=== PATIENT | female | born 1950 | race Caucasian/White ===

== ENCOUNTER → 2017-10-20 | Outpatient (CLI) | payer MEDICARE | LOC: M WHC 09:13 | DX: R92.2 Inconclusive mammogram (principal); Z01.419 Encounter for gynecological examination (general) (routine) without abnormal findings (principal); Z12.31 Encounter for screening mammogram for malignant neoplasm of breast; R92.0 Mammographic microcalcification found on diagnostic imaging of breast; R92.8 Other abnormal and inconclusive findings on diagnostic imaging of breast; E89.40 Asymptomatic postprocedural ovarian failure; Z78.0 Asymptomatic menopausal state; Z84.89 Family history of other specified conditions; Z12.12 Encounter for screening for malignant neoplasm of rectum | CPT/HCPCS: 77067 ==

== ENCOUNTER → 2017-10-22 | Outpatient (CLI) | payer MEDICARE | LOC: M RAD 11:45 | DX: R92.0 Mammographic microcalcification found on diagnostic imaging of breast (principal) | CPT/HCPCS: 77065 ==

== ENCOUNTER → 2017-11-24 | Outpatient (CLI) | payer MEDICARE ==
[~2017-11-24] MED LIST: LIDOCAINE 1% MDV 20ML VIAL As Ordered
== END ==
LOC: M RADPRO 10:14
DX: R92.0 Mammographic microcalcification found on diagnostic imaging of breast (principal); N60.12 Diffuse cystic mastopathy of left breast; N60.92 Unspecified benign mammary dysplasia of left breast
CPT/HCPCS: 19081

== ENCOUNTER → 2018-11-14 | Outpatient (CLI) | payer MEDICARE ==
--- NOTE | 2018-11-14 12:37 | REPMRS ---
Patient History The patient states she has not had a clinical breast exam in over a year. Family history of breast cancer under age 50 in paternal aunt, breast cancer in paternal grandmother. Benign radio exam breast specimen of the left breast, November 24, 2017. Benign stereotatic loc for ea lesion of the left breast, November 24, 2017. Took unspecified hormones for 1 year. Digital Woman Screen Mammo: November 14, 2018 - Exam #: [id number] Bilateral CC and MLO view(s) were taken. Technologist: Marcela Cameron, Technologist Prior study comparison: October 20, 2017, digital woman screen mammo performed at [facility] [employer] [facility]. March 07, 2015, digital woman screen mammo performed at [facility] [employer] [facility]. February 27, 2014, digital woman screen mammo performed at [facility] [employer] [facility]. FINDINGS: The breast tissue is heterogeneously dense. This may lower the sensitivity of mammography. There is a needle biopsy marker clip projecting the upper outer quadrant on the left. There is a moderate amount of heterogeneously dense fibroglandular tissue which is fairly symmetric. There is no interval development of dominant mass, architectural distortion, or clustered microcalcification typical of malignancy. There has been no change in the appearance of the mammogram from the prior studies. 3-D tomosynthesis shows no additional findings. Assessment: BI-RADS/ACR category 2 mammogram. Benign Findings. Recommendation Routine screening mammogram of both breasts in 1 year (for women over age 40). This patient's Lifetime Breast Cancer RIsk is estimated at 6.7 %. This mammogram was interpreted with the aid of an FDA-approved computer-aided dectection system. Electronically Signed By: Jonathan Chopra MD 11/14/18 [id number]
== END ==
LOC: M WHC 10:16
PROVIDERS: ATTEND Nurse Practitioner Women's Health
DX: Z12.31 Encounter for screening mammogram for malignant neoplasm of breast (principal); Z92.29 Personal history of other drug therapy; Z86.018 Personal history of other benign neoplasm
CPT/HCPCS: 77063; 77067; G0463

== ENCOUNTER → 2018-12-07 | Outpatient (REF) | payer MEDICARE | LOC: M SFHCWAGY 15:36 | PROVIDERS: ATTEND Nurse Practitioner Women's Health | DX: R39.15 Urgency of urination (principal); R30.0 Dysuria | CPT/HCPCS: 81002; 87088; 87186; G0463 ==

== ENCOUNTER → 2019-03-14 | Outpatient (REF) | payer MEDICARE | LOC: M SFHCWAGY 13:04 | PROVIDERS: ATTEND Nurse Practitioner Women's Health | DX: R39.15 Urgency of urination (principal); R10.32 Left lower quadrant pain; R10.31 Right lower quadrant pain ==

== ENCOUNTER → 2020-03-04 | Outpatient (CLI) | payer MEDICARE ==
[~2020-03-04] MED LIST changes: +CALC1TAB62 PO; -LIDOCAINE 1% MDV 20ML VIAL As Ordered; +MAGN100T PO; +NO ITAB PO; +RA K500C PO; +SUPECAP PO; +VITAD1000T PO
== END ==
LOC: M LABSMTC 09:24
PROVIDERS: ATTEND Anesthesiology
DX: Z01.818 Encounter for other preprocedural examination (principal); Z11.59 Encounter for screening for other viral diseases

== ENCOUNTER 2020-03-07 12:08 | Day surgery (SDC) | payer MEDICARE ==
[~2020-03-07] VITALS: Ht 167.6 cm; Wt 68.9 kg
[~2020-03-07 12:08] MED LIST changes: +BSS IRR 500ML/OMIDRIA 4ML IRR BAG (OR ONLY) (J1097 PER ML) As Ordered ONE; +CEFUROXIME 1MG/0.1ML INTRACAMERAL INJ As Ordered ONE; +DUOVISC (0.50ML VISCOAT/0.55ML PROVISC) OPHTH KIT As Ordered ONE; +MIDAZOLAM INJ 2MG/2ML VIAL (J2250 PER 1MG) As Ordered ONE; +OFLOXACIN 0.3 % (OCUFLOX) OPTH SOL 5ML OD ONE; +PHENYLEPHRINE 2.5% OPHTH SOL 2ML OD ONE; +POVIDONE-IODINE 5% OPHTH PREP SOL 30ML As Ordered ONE; +PROPARACAINE 0.5% OPHTH SOL 15ML OD ONE; +TROPICAMIDE 1% OPHTH SOLN 2ML OD ONE; +fentaNYL 100 MCG/2 ML INJECTION (J3010) As Ordered ONE
[2020-03-07 14:55] VITALS: BP 163/88
--- NOTE | 2020-03-14 23:49 | RO ---
DATE OF PROCEDURE: 03/07/2020 PREOPERATIVE DIAGNOSIS: 1. Visually significant nuclear sclerotic cataract right eye. POSTOPERATIVE DIAGNOSIS: 1. Visually significant nuclear sclerotic cataract right eye. PROCEDURE: 1. Cataract extraction with use of phacoemulsification and placement of intraocular lens, AU00T0, 19.0 D, right eye. SURGEON: Migue Real DO HOT MILL SHEARER: None. ANESTHESIA: Local with monitored anesthesia care (MAC), with Omidria (4 mL/500 mL) mixed into irrigation solution. COMPLICATIONS: None. POSTOPERATIVE CONDITION: Stable. INDICATIONS FOR SURGERY: 1. Blurred vision affecting patients activities of daily living. DESCRIPTION OF PROCEDURE: The patient was seen in the preoperative area and properly identified. The correct operative eye was identified and marked. The patient received topical anesthetic, antibiotics, and topical dilating drops. The patient was then transferred to the operating room. The correct side was re-identified, and a time-out was performed. The eye was prepped and draped in a sterile fashion. The eyelids were isolated with Tegaderm tape, and the lids were held open with an adjustable speculum. A 1.0 mm paracentesis incision was made. Intraocular preservative-free Shugarcaine was then injected into the anterior chamber. Viscoelastic was then injected into the anterior chamber through the paracentesis. Using a 2.4 mm sharp-tipped keratome, the anterior chamber was entered via a temporal clear cornea incision. A continuous curvilinear capsulorrhexis was created with Utrata forceps. Hydrodissection was performed with balanced salt solution (BSS) on a blunt cannula until the nucleus was able to rotate freely. The crystalline lens was phacoemulsified and aspirated. Irrigation/aspiration was used to remove the cortical material. Cohesive viscoelastic was placed into the capsular bag to deepen it. The implant was placed into the capsular bag and allowed to unfold. Placement was confirmed by visualizing the anterior capsulorrhexis. Irrigation/aspiration was used to remove the viscoelastic. The clear corneal incision was hydrated with BSS on a blunt cannula. The lens was well positioned. The incisions were then tested for leaks and found to be negative. Cefuroxime was injected into the anterior chamber. The eye was then palpated for appropriate pressure and adjusted accordingly with BSS. The eyelid speculum was then carefully removed. A shield was placed over the eye. The patient tolerated the procedure well and was discharged to the recovery unit in a stable condition.
== END 2020-03-07 15:11 | disposition home or self-care (01) ==
LOC: M SDC 12:08
PROVIDERS: ATTEND Ophthalmology
DX: H25.11 Age-related nuclear cataract, right eye (principal); M81.0 Age-related osteoporosis without current pathological fracture; Z88.0 Allergy status to penicillin
CPT/HCPCS: 66984; J1097; J2250; J3010; V2632

== ENCOUNTER → 2020-03-18 | Outpatient (CLI) | payer MEDICARE ==
[~2020-03-18] MED LIST changes: -BSS IRR 500ML/OMIDRIA 4ML IRR BAG (OR ONLY) (J1097 PER ML) As Ordered ONE; -CEFUROXIME 1MG/0.1ML INTRACAMERAL INJ As Ordered ONE; -DUOVISC (0.50ML VISCOAT/0.55ML PROVISC) OPHTH KIT As Ordered ONE; -MIDAZOLAM INJ 2MG/2ML VIAL (J2250 PER 1MG) As Ordered ONE; -OFLOXACIN 0.3 % (OCUFLOX) OPTH SOL 5ML OD ONE; -PHENYLEPHRINE 2.5% OPHTH SOL 2ML OD ONE; -POVIDONE-IODINE 5% OPHTH PREP SOL 30ML As Ordered ONE; -PROPARACAINE 0.5% OPHTH SOL 15ML OD ONE; -TROPICAMIDE 1% OPHTH SOLN 2ML OD ONE; -fentaNYL 100 MCG/2 ML INJECTION (J3010) As Ordered ONE
== END ==
LOC: M LABSMTC 10:21
PROVIDERS: ATTEND Anesthesiology
DX: Z03.818 Encounter for observation for suspected exposure to other biological agents ruled out (principal); Z11.59 Encounter for screening for other viral diseases
CPT/HCPCS: C9803; U0003

== ENCOUNTER 2020-03-21 10:05 | Day surgery (SDC) | payer MEDICARE ==
[~2020-03-21] VITALS: Ht 167.6 cm; Wt 69.8 kg
[~2020-03-21 10:05] MED LIST changes: +DUOVISC (0.50ML VISCOAT/0.55ML PROVISC) OPHTH KIT As Ordered ONE; +MIDAZOLAM INJ 2MG/2ML VIAL (J2250 PER 1MG) As Ordered ONE; +OFLOXACIN 0.3 % (OCUFLOX) OPTH SOL 5ML OS ONE; +PHENYLEPHRINE 2.5% OPHTH SOL 2ML OS ONE; +POVIDONE-IODINE 5% OPHTH PREP SOL 30ML As Ordered ONE; +PROPARACAINE 0.5% OPHTH SOL 15ML OS ONE; +TROPICAMIDE 1% OPHTH SOLN 2ML OS ONE; +fentaNYL 100 MCG/2 ML INJECTION (J3010) As Ordered ONE
[2020-03-21] MEDS ORDERED: BSS IRR 500ML/OMIDRIA 4ML IRR BAG (OR ONLY) (J1097 PER ML) As Ordered ONE (11:57)
[2020-03-21 13:15] VITALS: BP 144/70
--- NOTE | 2020-03-26 14:20 | RO ---
DATE OF PROCEDURE: 03/21/2020 PREOPERATIVE DIAGNOSIS: 1. Visually significant nuclear sclerotic cataract left eye. POSTOPERATIVE DIAGNOSIS: 1. Visually significant nuclear sclerotic cataract left eye. PROCEDURE: 1. Cataract extraction with use of phacoemulsification and placement of intraocular lens, AU00T0 18.0 D, left eye. SURGEON: Migue Real DO SECURITY ASSURANCE ANALYST: None. ANESTHESIA: Local with monitored anesthesia care (MAC), with Omidria (4 mL/500 mL) mixed into irrigation solution. COMPLICATIONS: None. POSTOPERATIVE CONDITION: Stable. INDICATIONS FOR SURGERY: 1. Blurred vision affecting patients activities of daily living. DESCRIPTION OF PROCEDURE: The patient was seen in the preoperative area and properly identified. The correct operative eye was identified and marked. The patient received topical anesthetic, antibiotics, and topical dilating drops. The patient was then transferred to the operating room. The correct side was re-identified, and a time-out was performed. The eye was prepped and draped in a sterile fashion. The eyelids were isolated with Tegaderm tape, and the lids were held open with an adjustable speculum. A 1.0 mm paracentesis incision was made. Intraocular preservative-free Shugarcaine was then injected into the anterior chamber. Viscoelastic was then injected into the anterior chamber through the paracentesis. Using a 2.4 mm sharp-tipped keratome, the anterior chamber was entered via a temporal clear cornea incision. A continuous curvilinear capsulorrhexis was created with Utrata forceps. Hydrodissection was performed with balanced salt solution (BSS) on a blunt cannula until the nucleus was able to rotate freely. The crystalline lens was phacoemulsified and aspirated. Irrigation/aspiration was used to remove the cortical material. Cohesive viscoelastic was placed into the capsular bag to deepen it. The implant was placed into the capsular bag and allowed to unfold. Placement was confirmed by visualizing the anterior capsulorrhexis. Irrigation/aspiration was used to remove the viscoelastic. The clear corneal incision was hydrated with BSS on a blunt cannula. The lens was well positioned. The incisions were then tested for leaks and found to be negative. Cefuroxime was injected into the anterior chamber. The eye was then palpated for appropriate pressure and adjusted accordingly with BSS. The eyelid speculum was then carefully removed. A shield was placed over the eye. The patient tolerated the procedure well and was discharged to the recovery unit in a stable condition.
== END 2020-03-21 13:15 | disposition home or self-care (01) ==
LOC: M SDC 10:05
PROVIDERS: ATTEND Ophthalmology
DX: H25.12 Age-related nuclear cataract, left eye (principal); M81.0 Age-related osteoporosis without current pathological fracture; Z79.899 Other long term (current) drug therapy
CPT/HCPCS: 66984; J1097; J2250; J3010; V2632

== ENCOUNTER → 2020-11-12 | Outpatient (CLI) | payer MEDICARE ==
[~2020-11-12] MED LIST changes: +D31000TA2 PO; -DUOVISC (0.50ML VISCOAT/0.55ML PROVISC) OPHTH KIT As Ordered ONE; -MIDAZOLAM INJ 2MG/2ML VIAL (J2250 PER 1MG) As Ordered ONE; -OFLOXACIN 0.3 % (OCUFLOX) OPTH SOL 5ML OS ONE; -PHENYLEPHRINE 2.5% OPHTH SOL 2ML OS ONE; -POVIDONE-IODINE 5% OPHTH PREP SOL 30ML As Ordered ONE; -PROPARACAINE 0.5% OPHTH SOL 15ML OS ONE; -TROPICAMIDE 1% OPHTH SOLN 2ML OS ONE; -VITAD1000T PO; -fentaNYL 100 MCG/2 ML INJECTION (J3010) As Ordered ONE
--- NOTE | 2020-11-12 10:44 | REPMRS ---
Patient History The patient states she has not had a clinical breast exam in over a year. Family history of breast cancer under age 50 in paternal aunt, breast cancer in paternal grandmother. Benign radio exam breast specimen of the left breast, November 24, 2017. Benign stereotatic loc for ea lesion of the left breast, November 24, 2017. Took unspecified hormones for 1 year. Digital Woman Screen Mammo: November 12, 2020 - Exam #: [id number] Bilateral CC and MLO view(s) were taken. Technologist: Marcela Cameron, Technologist Prior study comparison: November 14, 2018, bilateral digital woman screen mammo performed at [facility]. October 20, 2017, digital woman screen mammo performed at [facility]. March 07, 2015, digital woman screen mammo performed at [facility]. FINDINGS: The breast tissue is heterogeneously dense. This may lower the sensitivity of mammography. The Volpara volumetric breast density category is: C. There is a needle biopsy marker clip in the left breast. There is a moderate amount of heterogeneously dense fibroglandular tissue which is fairly symmetric. There is no interval development of dominant mass, architectural distortion, or grouped microcalcification typical of malignancy. There has been no change in the appearance of the mammogram from the prior studies. 3-D tomosynthesis shows no additional findings. Assessment: BI-RADS/ACR category 2 mammogram. Benign Findings. Recommendation Routine screening mammogram of both breasts in 1 year (for women over age 40). This patient's [facility] Lifetime Breast Cancer RIsk is estimated at 6.0 %. This mammogram was interpreted with the aid of an FDA-approved computer-aided dectection system. Electronically Signed By: Jonathan Chopra MD 11/12/20 [id number]
--- NOTE | 2020-11-12 10:46 | DEXAMM ---
INDICATION: DISORDER OF BONE/CARTILAGE/M89.9/M94.9. COMPARISON: 10/20/2017 as well as other prior exams. TECHNIQUE: Bone density was measured using dual-energy x-ray absorptiometry (DEXA). FINDINGS: AP SPINE L1-L4 BMD 0.993 g/cm2 Young Adult T-Score -1.6 Age Matched Z-Score 0.0. LT FEMUR, TOTAL BMD 0.815 g/cm2 Young Adult T-Score -1.5 Age Matched Z-Score -0.1. LT NECK BMD 0.782 g/cm2 Young Adult T-Score -1.8 Age Matched Z-Score -0.2. RT FEMUR, TOTAL BMD 0.889 g/cm2 Young Adult T-Score -0.9 Age Matched Z-Score 0.5. RT NECK BMD 0.782 g/cm2 Young Adult T-Score -1.8 Age Matched Z-Score -0.2. IMPRESSION: There is low bone density of the spine. There is low bone density of the left hip. There is low bone density of the right hip. The density of the spine has decreased 6.1% since the initial exam on 01/26/2000. The density of the spine decreased 8.4% since most recent exam on 10/20/2017. The density of the left hip has decreased 9.0% since initial exam on 01/26/2000. The density of the left hip has decreased 4.8% since most recent exam on 10/20/2017. The density of the right hip has decreased 3.2% since the initial exam on 01/26/2000. The density of the right hip has decreased 2.4% since the most recent exam on 10/20/2017. FOLLOW-UP: Recommendation for the next bone density exam: 2 years. <Electronically signed by Cl Bentley > 11/12/20 [id number]
== END ==
LOC: M WHC 09:30
PROVIDERS: ATTEND Physician Assistant Medical
DX: Z12.31 Encounter for screening mammogram for malignant neoplasm of breast (principal); M85.88 Other specified disorders of bone density and structure, other site; M94.9 Disorder of cartilage, unspecified; Z86.018 Personal history of other benign neoplasm; Z97.8 Presence of other specified devices; M85.851 Other specified disorders of bone density and structure, right thigh; M85.852 Other specified disorders of bone density and structure, left thigh

== ENCOUNTER → 2022-10-27 | Outpatient (CLI) | payer MEDICARE ==
[~2022-10-27] MED LIST changes: +BACT800T5 PO; -D31000TA2 PO; +GLUCTAB31 PO; +SUPETAB56 PO; +VALA500T5 PO; +VITA100093 PO
[2022-10-27 11:01] LABS: APPEARANCE, URINE MANUAL HAZY (CLEAR); BILIRUBIN, URINE MANUAL NEGATIVE (NEGATIVE); COLOR, URINE MANUAL LT YELLOW (YELLOW); GLUCOSE, URINE (UA) MANUAL NEGATIVE (NEGATIVE); KETONE, URINE MANUAL NEGATIVE (NEGATIVE); PROTEIN, URINE MANUAL NEGATIVE (NEGATIVE); SPECIFIC GRAVITY,URINE MANUAL 1.005 (1.002-1.035); UROBILINOGEN, URINE MANUAL NORMAL (NORMAL)
[2022-10-27 11:02] LABS: BASO % 0.5 % (0.0-1.0); BLOOD URINE MANUAL TRACE (NEGATIVE); EOS % 0.5 % (0.0-3.0); HEMOGLOBIN 13.8 g/dl (12.0-15.5); LEUKOCYTE ESTERASE, URINE MAN POSITIVE (NEGATIVE); LYMPH # 1.4 10^3/uL (1.5-5.0); LYMPH % 25.8 % (24.0-44.0); MEAN CORPUSCULAR HEMOGLOBIN 28.3 pg (27.0-33.0); MEAN CORPUSCULAR HGB CONC 32.1 g/dl (32.0-36.5); MEAN CORPUSCULAR VOLUME 88.1 fl (80.0-96.0); MONO # 0.3 10^3/uL (0.0-0.8); MONO % 5.5 % (2.0-8.0); NEUTROPHILS # 3.7 10^3/uL (1.5-8.5); NEUTROPHILS % 67.5 % (36.0-66.0); NITRITE, URINE MANUAL POSITIVE (NEGATIVE); PLATELET COUNT, AUTOMATED 277 10^3/uL (150-450); RED BLOOD COUNT 4.88 10^6/uL (4.00-5.40); WHITE BLOOD COUNT 5.5 10^3/uL (4.0-10.0)
[2022-10-27 11:17] LABS: BACTERIA, URINE LARGE AMOUNT; HYALINE CAST, URINE NONE SEEN /lpf (0-1); RBC, URINE 0-1 /hpf (0-3); SQUAMOUS EPITHELIAL CELL URINE SMALL AMOUNT /hpf (SMALL AMT)
[2022-10-27 11:29] LABS: ALKALINE PHOSPHATASE 101 U/L (46-116); ALT/SGPT 22 U/L (7.0-40); AST/SGOT 23 U/L (<34); BILIRUBIN,TOTAL 0.5 MG/DL (0.3-1.2); BLOOD UREA NITROGEN 17 MG/DL (9-23); CALCIUM LEVEL 9.2 MG/DL (8.3-10.6); CARBON DIOXIDE LEVEL 30 MMOL/L (20-31); CHLORIDE LEVEL 106 MMOL/L (98-107); CHOLESTEROL LEVEL 247 MG/DL (<200); CHOLESTEROL RISK RATIO 3.36 (<5); CREATININE FOR GFR 0.67 MG/DL (0.55-1.30); GLOMERULAR FILTRATION RATE > 60.0 (>39); GLUCOSE, FASTING 95 MG/DL (74-106); HDL CHOLESTEROL 73.4 MG/DL (>40); NON-HDL-C 174 MG/DL; POTASSIUM SERUM 4.6 MMOL/L (3.5-5.1); SODIUM LEVEL 143 MMOL/L (136-145); TOTAL PROTEIN 6.6 G/DL (5.7-8.2); TRIGLYCERIDES LEVEL 113 MG/DL (<150)
== END ==
LOC: M PLALAB 08:33
PROVIDERS: ATTEND Nurse Practitioner Family
DX: Z01.818 Encounter for other preprocedural examination (principal); R03.0 Elevated blood-pressure reading, without diagnosis of hypertension; E78.5 Hyperlipidemia, unspecified; Z79.899 Other long term (current) drug therapy

== ENCOUNTER → 2022-10-29 | Outpatient (CLI) | payer MEDICARE | LOC: M RAD 07:14 | PROVIDERS: ATTEND Nurse Practitioner Family | DX: I31.39 Other pericardial effusion (noninflammatory) (principal) ==

== ENCOUNTER → 2022-11-09 | Outpatient (CLI) | payer MEDICARE | LOC: M LABSMTC 10:55 | PROVIDERS: ATTEND Anesthesiology | DX: Z01.812 Encounter for preprocedural laboratory examination (principal); Z11.52 Encounter for screening for COVID-19 ==

== ENCOUNTER 2022-11-13 09:50 | Day surgery (SDC) | payer MEDICARE ==
[~2022-11-13] VITALS: Ht 167.6 cm; Wt 65.8 kg
[2022-11-13] MEDS ORDERED: LR 1,000 ML IV SCH ×2 (10:05→13:25)
[2022-11-13] MEDS ORDERED: propofoL 200 MG/20 ML VIAL As Ordered ONE (10:10)
[2022-11-13] MEDS ORDERED: LIDOCAINE 2% 100MG/5ML SDV (FOR ANES.) As Ordered ONE (10:11)
[2022-11-13] MEDS ORDERED: ONDANSETRON 4MG 2ML VIAL As Ordered ONE (10:11)
[2022-11-13] MEDS ORDERED: KETOROLAC 60MG 2ML VIAL As Ordered ONE (10:12)
[2022-11-13] MEDS ORDERED: MIDAZOLAM INJ 2MG/2ML VIAL As Ordered ONE (10:13)
[2022-11-13] MEDS ORDERED: fentaNYL 100 MCG/2 ML INJECTION As Ordered ONE (10:13)
[2022-11-13 10:28] LABS: HEMATOCRIT 41.7 % (36.0-47.0); HEMOGLOBIN 13.7 g/dl (12.0-15.5); MEAN CORPUSCULAR HEMOGLOBIN 28.5 pg (27.0-33.0); MEAN CORPUSCULAR HGB CONC 32.9 g/dl (32.0-36.5); MEAN CORPUSCULAR VOLUME 86.7 fl (80.0-96.0); PLATELET COUNT, AUTOMATED 249 10^3/uL (150-450); RED BLOOD COUNT 4.81 10^6/uL (4.00-5.40); WHITE BLOOD COUNT 4.9 10^3/uL (4.0-10.0)
[2022-11-13] MEDS ORDERED: ceFAZolin 2 GM/D5W 50 ML IV BAG As Ordered ONE (12:33)
[2022-11-13] MEDS ORDERED: ePHEDrine SULFATE 25 MG/5 ML(5MG/ML) SYRINGE As Ordered ONE (12:44)
[2022-11-13] MEDS ORDERED: HYDROMORPHONE HCL 0.5 MG/ 0.5 ML SYRINGE IV PRN (13:25)
[2022-11-13] MEDS ORDERED: ONDANSETRON 4MG 2ML VIAL IV PRN (13:25)
[2022-11-13] MEDS ORDERED: fentaNYL 100 MCG/2 ML INJECTION IV PRN (13:25)
[2022-11-13] MEDS ORDERED: oxyCODONE 5MG TAB PO PRN (13:25)
[2022-11-13] MEDS ORDERED: PERCOCET 5MG/325MG TAB PO PRN (14:05)
[2022-11-13 15:20] VITALS: BP 140/98
[2022-11-13] MEDS ORDERED: KETOROLAC 30 MG/ML 1ML VIAL IV SCH (16:00)
== END 2022-11-13 15:24 | disposition home or self-care (01) ==
LOC: M SDC 09:50
PROVIDERS: ATTEND Obstetrics & Gynecology
DX: N81.11 Cystocele, midline (principal); E78.5 Hyperlipidemia, unspecified; R35.0 Frequency of micturition; R03.0 Elevated blood-pressure reading, without diagnosis of hypertension; Z88.0 Allergy status to penicillin; Z87.442 Personal history of urinary calculi
CPT/HCPCS: 36415; 57240; 85027; 86850; 86900; 86901; 88302; J0690; J1100; J1885; J2250; J2405; J3010

== ENCOUNTER → 2022-12-11 | Outpatient (CLI) | payer MEDICARE | LOC: M WHC 10:24 | PROVIDERS: ATTEND Nurse Practitioner Family | DX: Z12.31 Encounter for screening mammogram for malignant neoplasm of breast (principal); M85.89 Other specified disorders of bone density and structure, multiple sites ==

== ENCOUNTER → 2023-08-31 | Outpatient (REF) | payer MEDICARE | LOC: M SFHCWAGY 16:43 | PROVIDERS: ATTEND Obstetrics & Gynecology | DX: N30.90 Cystitis, unspecified without hematuria (principal) ==

== ENCOUNTER → 2024-03-07 | Outpatient (CLI) | payer MEDICARE ==
[2024-03-07 14:24] LABS: ALBUMIN 3.9 G/DL (3.2-5.2); ALKALINE PHOSPHATASE 103 U/L (46-116); ALT/SGPT 18 U/L (7.0-40); AST/SGOT 14 U/L (<34); BILIRUBIN,TOTAL 0.6 MG/DL (0.3-1.2); BLOOD UREA NITROGEN 16 MG/DL (9-23); CALCIUM LEVEL 9.1 MG/DL (8.3-10.6); CARBON DIOXIDE LEVEL 29 MMOL/L (20-31); CHLORIDE LEVEL 107 MMOL/L (98-107); CHOLESTEROL LEVEL 244 MG/DL (<200); CHOLESTEROL RISK RATIO 3.57 (<5); GLOMERULAR FILTRATION RATE > 60.0 (>39); GLUCOSE, FASTING 93 MG/DL (74-106); HDL CHOLESTEROL 68.3 MG/DL (>40); LDL CHOLESTEROL 160.1 MG/DL (<100); NON-HDL-C 175.7 MG/DL; POTASSIUM SERUM 4.9 MMOL/L (3.5-5.1); SODIUM LEVEL 140 MMOL/L (136-145); TOTAL PROTEIN 6.5 G/DL (5.7-8.2); TRIGLYCERIDES LEVEL 78 MG/DL (<150)
== END ==
LOC: M PLALAB 09:52
PROVIDERS: ATTEND Nurse Practitioner Family
DX: E78.5 Hyperlipidemia, unspecified (principal)

== ENCOUNTER → 2024-10-12 | Outpatient (CLI) | payer MEDICARE ==
[2024-10-12 17:15] LABS: BASO % 0.4 % (0.0-1.0); EOS % 0.5 % (0.0-3.0); HEMATOCRIT 37.4 % (36.0-47.0); HEMOGLOBIN 13.5 g/dl (12.0-15.5); LYMPH # 1.7 10^3/uL (1.5-5.0); LYMPH % 21.9 % (24.0-44.0); MEAN CORPUSCULAR HEMOGLOBIN 32.4 pg (27.0-33.0); MEAN CORPUSCULAR HGB CONC 36.1 g/dl (32.0-36.5); MEAN CORPUSCULAR VOLUME 89.7 fl (80.0-96.0); MONO # 0.5 10^3/uL (0.0-0.8); MONO % 6.2 % (2.0-8.0); NEUTROPHILS # 5.5 10^3/uL (1.5-8.5); NEUTROPHILS % 70.7 % (36.0-66.0); PLATELET COUNT, AUTOMATED 278 10^3/uL (150-450); RED BLOOD COUNT 4.17 10^6/uL (4.00-5.40); WHITE BLOOD COUNT 7.7 10^3/uL (4.0-10.0)
[2024-10-12 17:20] LABS: ALBUMIN 4.1 G/DL (3.2-5.2); ALKALINE PHOSPHATASE 116 U/L (35-104); ALT/SGPT 36 U/L (7.0-40); AST/SGOT 27 U/L (<34); BILIRUBIN,TOTAL 0.5 MG/DL (0.3-1.2); BLOOD UREA NITROGEN 17 MG/DL (9-23); CALCIUM LEVEL 9.3 MG/DL (8.3-10.6); CARBON DIOXIDE LEVEL 27 MMOL/L (20-31); CHLORIDE LEVEL 106 MMOL/L (98-107); CREATININE FOR GFR 0.76 MG/DL (0.55-1.30); GLOMERULAR FILTRATION RATE > 60.0 (>39); GLUCOSE, FASTING 96 MG/DL (74-106); INR 0.94; IRON (FE) 47 UG/DL (50-170); PARTIAL THROMBOPLASTIN TIME 26.4 SECONDS (24.8-34.2); PERCENT SATURATION 15.5 % (13.2-45.0); POTASSIUM SERUM 4.3 MMOL/L (3.5-5.1); PROTHROMBIN TIME 12.9 SECONDS (12.5-14.5); SODIUM LEVEL 143 MMOL/L (136-145); TOTAL IRON BINDING CAPACITY 303 UG/DL (250-425); TOTAL PROTEIN 7.3 G/DL (5.7-8.2)
[2024-10-12 17:22] LABS: FERRITIN 198.2 NG/ML (7.3-270.7); THYROID STIMULATING HORMONE 1.195 uIU/ML (0.55-4.78)
[2024-10-12 17:23] LABS: FREE T4 1.32 NG/DL (0.89-1.76)
== END ==
LOC: M PLALAB 14:49
PROVIDERS: ATTEND Nurse Practitioner Family
DX: I10 Essential (primary) hypertension (principal); R35.0 Frequency of micturition; D50.9 Iron deficiency anemia, unspecified

== ENCOUNTER → 2025-01-02 | Outpatient (REF) | payer MEDICARE | LOC: M LAB REF 16:51 | PROVIDERS: ATTEND Nurse Practitioner Family | DX: R35.0 Frequency of micturition (principal) ==

== ENCOUNTER → 2025-07-16 | Outpatient (CLI) | payer MEDICARE ==
[2025-07-16 11:14] LABS: ALT/SGPT 23 U/L (7.0-40); AST/SGOT 24 U/L (<34); CALCIUM LEVEL 8.7 MG/DL (8.3-10.6); CARBON DIOXIDE LEVEL 28 MMOL/L (20-31); CHLORIDE LEVEL 105 MMOL/L (98-107); CHOLESTEROL LEVEL 241 MG/DL (<200); CHOLESTEROL RISK RATIO 3.59 (<5); CREATININE FOR GFR 0.65 MG/DL (0.55-1.30); GLOMERULAR FILTRATION RATE > 90.0 (>39); LDL CHOLESTEROL 147.6 MG/DL (<100); NON-HDL-C 174.0 MG/DL; POTASSIUM SERUM 4.6 MMOL/L (3.5-5.1); SODIUM LEVEL 143 MMOL/L (136-145); TRIGLYCERIDES LEVEL 132 MG/DL (<150)
== END ==
LOC: M PLALAB 08:37
PROVIDERS: ATTEND Nurse Practitioner Family
DX: E78.5 Hyperlipidemia, unspecified (principal)